=== PATIENT | male | born 1995 | race Caucasian/White ===

== ENCOUNTER 2018-08-03 02:15 | Emergency (ER) | payer OTHER ==
--- NOTE | 2018-08-03 02:31 | EDM.PDOCBH ---
ED HPI GENERAL MEDICAL PROBLEM - General Stated Complaint: ALLERGIC REACTION Time Seen by Provider: 08/03/18 02:15 Source of Information: Reports: Patient, EMS History Limitations: Reports: Altered Mental Status - History of Present Illness INITIAL COMMENTS - FREE TEXT/NARRATIVE: 22.shirley came to the ed after his call 911 the pt needs to be taken to the hospital in order for her to be safe and he will be safe. Pt was given Divalproex/Depakote medication -250 mg daily-for depression by his PW last Sunday07/30/2018. As the patient arrived here in the ed, he denied suicidal ideation but is afraid to harm somebody else. Pt denied N/V/D Dizziness or any other acute physical issues. BP 124/77 Pulse 76 RR 18 Pulse ox 98% on RA Temp 36.8 Onset Date: 08/03/18 Onset Time: 01:00 Duration: Hour(s):, Getting Worse Location: Reports: Head Quality: Reports: Other Severity: Moderate Improves with: Reports: None Worsens with: Reports: None Context: Reports: Other (was started on Sunday on Divalproex ) Associated Symptoms: Reports: Other (suicidal and homocidal ideation) - Related Data Allergies Allergy/AdvReac Type Severity Reaction Status Date / Time No Known Allergies Allergy Verified 08/03/18 02:27 Home Meds: Home Meds Divalproex Sodium [Depakote] 250 mg PO BEDTIME 08/03/18 [History] Past Medical History HEENT History: Reports: Impaired Vision, Other (See Below) Other HEENT History: Eyeglasses Genitourinary History: Reports: Renal Calculus Musculoskeletal History: Reports: Other (See Below) Other Musculoskeletal History: Sciatic pain, broken collar bone when kid Neurological History: Reports: Concussion - Infectious Disease History Infectious Disease History: Reports: Chicken Pox - Past Surgical History Male Surgical History: Reports: Kidney Stone Extraction Social & Family History - Family History Family Medical History: Noncontributory - Caffeine Use Caffeine Use: Reports: Coffee Caffeine Use Comment: Every morning ED ROS GENERAL - Review of Systems Review Of Systems: See Below Constitutional: Reports: No Symptoms HEENT: Reports: No Symptoms Respiratory: Reports: No Symptoms Cardiovascular: Reports: No Symptoms Endocrine: Reports: No Symptoms GI/Abdominal: Reports: No Symptoms : Reports: No Symptoms Musculoskeletal: Reports: No Symptoms Skin: Reports: No Symptoms Neurological: Reports: No Symptoms Psychiatric: Reports: Anxiety, Homicidal Ideation, Suicidal Ideation Hematologic/Lymphatic: Reports: No Symptoms Immunologic: Reports: No Symptoms ED EXAM, BEHAVIORAL HEALTH - Physical Exam Exam: See Below Exam Limited By: No Limitations General Appearance: Alert, WD/WN, Mild Distress Eye Exam: Bilateral Eye: Normal Inspection Ears: Normal External Exam Nose: Normal Inspection Throat/Mouth: Normal Inspection Head: Atraumatic, Normocephalic Neck: Normal Inspection, Supple, Non-Tender, Full Range of Motion Respiratory/Chest: No Respiratory Distress, Lungs Clear, Normal Breath Sounds, No Accessory Muscle Use, Chest Non-Tender Cardiovascular: Normal Peripheral Pulses, Regular Rate, Rhythm, No Edema, No JVD , No Murmur, No Rub GI/Abdominal: Normal Bowel Sounds, Soft, Non-Tender, No Organomegaly, No Distention, No Abnormal Bruit, No Mass, Pelvis Stable (Male) Exam: Deferred Rectal (Males) Exam: Deferred Back Exam: Normal Inspection, Full Range of Motion Extremities: Normal Inspection, Normal Range of Motion, Non-Tender, No Pedal Edema, Normal Capillary Refill Neurological: Alert, Normal Mood/Affect, CN II-XII Intact, Normal Cognition, Normal Gait, Oriented x 3 Psychiatric: Alert, Normal Cognition, Depressed Mood, Homicidal Thoughts Skin Exam: Warm, Dry, Intact, Normal color, No rash EKG INTERPRETATION EKG Date: 08/03/18 Time: 02:40 Rhythm: NSR Rate (Beats/Min): 76 [place]: Normal P-Wave: Present QRS: Normal ST-T: Normal QT: Normal Comparison: NA - No Prior EKG COURSE, BEHAVIORAL HEALTH COMP - Course Vital Signs: Last Vital Signs Temp 36.8 C 08/03/18 02:17 Pulse 76 08/03/18 02:17 Resp 18 08/03/18 02:17 BP 124/77 08/03/18 02:17 Pulse Ox 97 08/03/18 02:17 23.w.m came to the ed after his call 911 the pt needs to be taken to the hospital in order for her to be safe and he will be safe. Pt was given Divalproex/Depakote medication -250 mg daily-for depression by his PW last Sunday07/30/2018. As the patient arrived here in the ed, he denied suicidal ideation but is afraid to harm somebody else. Pt denied N/V/D Dizziness or any other acute physical issues. BP 124/77 Pulse 76 RR 18 Pulse ox 98% on RA Temp 36.8 PE: WNWD W M with homicidal ideation Labs: CBC and BMP nl except Mg was 1.7 TSH 3.91 Impression: Depression, Low magnesium, Elevated TSH 3.94 (nl 3.7), Bipolar disorder Tx: Magnesium Oxide. Stop Divalproex 3.15 am Consultation: Taran Taylor was called: Impression: Bipolar disorder , Pt must stop taking the Divalproex. Pt must see a Psychiatrist this wee, It is save for him to go home to his family Reexam: Pt improved. Pt has requested his to be called if she allows him to come back home. was called and spoke with her on the phone. As per Pt, his does not want him back. He can go home by taxi ,to get some money and his stuff and go somewhere else. Pt said he is not suicidal or homicidal Plan: D/C with instructions Orders, Labs, Meds: Active Orders 24 hr Category Date Time Status EKG Documentation Completion [RC] ASDIRECTED Care 08/03/18 02:29 Active EKG 12 Lead [EK] Routine Ther 08/03/18 02:28 Ordered Laboratory Tests 08/03/18 08/03/18 08/03/18 Range/Units 02:40 02:40 02:40 WBC 10.6 (4.5-12.0) X10-3/uL RBC 4.40 (4.30-5.75) x10(6)uL Hgb 13.7 (11.5-15.5) g/dL Hct 40.2 (30.0-51.3) % MCV 91.5 (80-96) fL MCH 31.2 (27.7-33.6) pg MCHC 34.1 (32.2-35.4) g/dL RDW 12.6 (11.5-15.5) % Plt Count 296 (125-369) X10(3)uL MPV 7.8 (7.4-10.4) fL Neut % (Auto) 63.8 (46-82) % Lymph % (Auto) 22.8 (13-37) % [place] % (Auto) 9.7 (4-12) % Eos % (Auto) 3 (1.0-5.0) % Baso % (Auto) 1 (0-2) % Neut # (Auto) 6.8 (1.6-8.3) # Lymph # (Auto) 2.4 (0.6-5.0) # [place] # (Auto) 1.0 (0.0-1.3) # Eos # (Auto) 0.3 (0.0-0.8) # Baso # (Auto) 0.1 (0.0-0.2) # Sodium 141 (135-145) mmol/L Potassium 3.7 (3.5-5.3) mmol/L Chloride 104 (100-110) mmol/L Carbon Dioxide 27 (21-32) mmol/L BUN 18 (7-18) mg/dL Creatinine 1.1 (0.70-1.30) mg/dL Est Cr Clr Drug Dosing 108.76 mL/min Estimated GFR (MDRD) > 60 (>60) BUN/Creatinine Ratio 16.4 (9-20) Glucose 107 (80-116) mg/dL Calcium 8.7 (8.6-10.2) mg/dL Magnesium 1.7 L (1.8-2.5) mg/dL TSH, Ultra Sensitive 3.90 H (0.36-3.74) IU/mL Salicylates 0.5 L (2.8-20.0) mg/dL Urine Opiates Screen (NEGATIVE) Ur Oxycodone Screen (NEGATIVE) Ur Propoxyphene Screen (NEGATIVE) Acetaminophen < 2 L (10-30) ug/mL Ur Barbituates Screen (NEGATIVE) Ur Tricyclics Screen (NEGATIVE) Ur Phencyclidine Scrn (NEGATIVE) Ur Amphetamine Screen (NEGATIVE) Urine MDMA Screen (NEGATIVE) U Benzodiazepines Scrn (NEGATIVE) U Cocaine Metab Screen (NEGATIVE) U Marijuana (THC) Screen (NEGATIVE) Ethyl Alcohol < 0.03 (<0.03) % 08/03/18 Range/Units 02:58 WBC (4.5-12.0) X10-3/uL RBC (4.30-5.75) x10(6)uL Hgb (11.5-15.5) g/dL Hct (30.0-51.3) % MCV (80-96) fL MCH (27.7-33.6) pg MCHC (32.2-35.4) g/dL RDW (11.5-15.5) % Plt Count (125-369) X10(3)uL MPV (7.4-10.4) fL Neut % (Auto) (46-82) % Lymph % (Auto) (13-37) % [place] % (Auto) (4-12) % Eos % (Auto) (1.0-5.0) % Baso % (Auto) (0-2) % Neut # (Auto) (1.6-8.3) # Lymph # (Auto) (0.6-5.0) # [place] # (Auto) (0.0-1.3) # Eos # (Auto) (0.0-0.8) # Baso # (Auto) (0.0-0.2) # Sodium (135-145) mmol/L Potassium (3.5-5.3) mmol/L Chloride (100-110) mmol/L Carbon Dioxide (21-32) mmol/L BUN (7-18) mg/dL Creatinine (0.70-1.30) mg/dL Est Cr Clr Drug Dosing mL/min Estimated GFR (MDRD) (>60) BUN/Creatinine Ratio (9-20) Glucose (80-116) mg/dL Calcium (8.6-10.2) mg/dL Magnesium (1.8-2.5) mg/dL TSH, Ultra Sensitive (0.36-3.74) IU/mL Salicylates (2.8-20.0) mg/dL Urine Opiates Screen Negative (NEGATIVE) Ur Oxycodone Screen Negative (NEGATIVE) Ur Propoxyphene Screen Negative (NEGATIVE) Acetaminophen (10-30) ug/mL Ur Barbituates Screen Negative (NEGATIVE) Ur Tricyclics Screen Negative (NEGATIVE) Ur Phencyclidine Scrn Negative (NEGATIVE) Ur Amphetamine Screen Negative (NEGATIVE) Urine MDMA Screen Negative (NEGATIVE) U Benzodiazepines Scrn Negative (NEGATIVE) U Cocaine Metab Screen Negative (NEGATIVE) U Marijuana (THC) Screen Negative (NEGATIVE) Ethyl Alcohol (<0.03) % Medications Discontinued Medications Generic Name Dose Route Start Last Admin Trade Name Freq PRN Reason Stop Dose Admin Magnesium Oxide 800 mg 08/03/18 03:39 08/03/18 03:48 Magnesium Oxide PO 08/03/18 03:40 800 mg ONETIME ONE Administration Departure - Departure Time of Disposition: 04:16 Disposition: Home, Self-Care 01 Condition: Good Clinical Impression: Bipolar 1 disorder, depressed - Discharge Information Instructions: Living With Bipolar Disorder, Supporting Someone With Bipolar Disorder, Hypomagnesemia, Major Depressive Disorder, Adult, [id number] Referrals: PCP,Unknown [Primary Care Provider] - Forms: ED Department Discharge Additional Instructions: Please stop the medication Divalproex, please f/u this week with you Psychiatrist. Please come back if your symptoms get worse acutely - My Orders Last 24 Hours: My Active Orders 08/03/18 02:28 EKG 12 Lead [EK] Routine 08/03/18 02:29 EKG Documentation Completion [RC] ASDIRECTED - Assessment/Plan Last 24 Hours: My Active Orders 08/03/18 02:28 EKG 12 Lead [EK] Routine 08/03/18 02:29 EKG Documentation Completion [RC] ASDIRECTED
[2018-08-03 03:04] LABS: ACETAMINOPHEN < 2 ug/mL (10-30)
[2018-08-03] MEDS ORDERED: Magnesium Oxide 400 MG Tab PO ONE (03:39)
== END 2018-08-03 04:40 | disposition home or self-care (01) ==
LOC: FB.ED 02:15
DX: F31.9 Bipolar disorder, unspecified (principal); E83.42 Hypomagnesemia; R79.89 Other specified abnormal findings of blood chemistry
CPT/HCPCS: 36415; 80048; 80305; 83735; 84443; 85025; 93005; 99284; A9270; G0480